=== PATIENT | female | born 1970 | race Caucasian/White ===

== ENCOUNTER 2016-10-01 09:52 | Outpatient (CLI) | payer BC ==
[~2016-10-01 09:52] MED LIST: ACETAMINOPHEN120 MG PO; ACIDOPHILUS PO; BEYAZ PO; LEVOTHYROXINE25 MCG PO; NORCO1 TA1 PO; TRAZODONE HCL50 MG PO
--- NOTE | 2016-10-01 12:26 | DIAGNOSTIC IMAGING REPORT ---
PROCEDURE: US COMPLETE PELVIC W/TRANSVAG INDICATION: PELVIC PAIN TECHNIQUE: Transabdominal and endovaginal valentin scale and color Doppler sonographic images of the female pelvis were obtained. COMPARISON: Pelvic ultrasound dated 09/24/2015 FINDINGS: TRANSABDOMINAL SCANS: The uterus is of normal size 8.4 x 3.1 x 4.8 cm Kidneys are normal. TRANSVAGINAL SCANS: The uterus is anteverted. Myometrium is normal. The endometrium measures 2 mm. Ovaries were not visualized. There is a trace of free fluid in the lower uterine segment and cervix IMPRESSION: 1. Normal uterus and kidneys.
--- NOTE | 2016-10-01 12:37 | DIAGNOSTIC IMAGING REPORT ---
PROCEDURE: US ABDOMEN ULTRASOUND-COMPLETE INDICATION: ABD PAIN TECHNIQUE: Che scale and color Doppler sonographic images of the abdomen were obtained. COMPARISON: CT abdomen/pelvis 09/22/2015 FINDINGS: Liver measures 17.2 cm with a 2.6 cm right hepatic and 1.4 cm left hepatic lobe echogenic lesions consistent with hemangiomas. Normal gallbladder and CBD (2.5 mm). Normal spleen and pancreas. Aorta and IVC are patent. Normal hepatopetal flow. Right clemens measures 11.7 cm with a 1.8 cm heterogeneous tear/lobulation in the upper pole, without corresponding abnormality on prior CT scan. Normal left kidney measures 10.8 cm. IMPRESSION: 1. Two hepatic hemangiomas 2. 1.8 cm right renal upper pole heterogeneous area/lobulation.. Recommend renal CT scan.
== END 2016-10-01 23:00 ==
LOC: US SRH 09:52
DX: R10.9 Unspecified abdominal pain (principal); R10.30 Lower abdominal pain, unspecified; D47.3 Essential (hemorrhagic) thrombocythemia; R93.5 Abnormal findings on diagnostic imaging of other abdominal regions, including retroperitoneum
CPT/HCPCS: 90074; 95059; 95130

== ENCOUNTER 2016-10-05 13:50 | Outpatient (CLI) | payer BC ==
--- NOTE | 2016-10-05 15:04 | DIAGNOSTIC IMAGING REPORT ---
PROCEDURE: CT ABD/PELVIS W/WO CONTRAST CLINICAL INDICATION: LOWER ABD PAIN TECHNIQUE: Noncontrast axial images were obtained through the entire abdomen and pelvis with sagittal and coronal reformations. Following 125 mL of Isovue 300 injected intravenously, axial images were obtained of the entire abdomen and pelvis with sagittal and coronal reformations. COMPARISON: Abdominal ultrasound 10/01/[address] abdomen/pelvis 09/18/2015. FINDINGS: ABDOMEN: Normal right kidney without evidence of a mass. Both kidneys demonstrate normal enhancement and excretion. No calculi or hydronephrosis. Normal ureters. Minor right basilar atelectasis. Normal heart size. 5 mm hypoenhancing lesion in the right hepatic lobe posteriorly, unchanged, likely corresponds to one of the hemangiomas seen on recent ultrasound. Gallbladder, pancreas, spleen and right adrenal gland are normal. 1.7 cm left adrenal nodule measures -21 Hounsfield units on the noncontrast images, consistent with an adenoma. Normal abdominal aorta. Nonspecific bowel gas pattern. PELVIS: The uterus, adnexa and bladder are normal. Small amount of free fluid in the cul-de-sac. No suspicious osseous lesions. IMPRESSION: 1. No evidence of a right renal mass 2. Left adrenal adenoma All CT scans at this facility use dose modulation, iterative reconstruction, and/or weight-based dosing when appropriate to reduce radiation dose to as low as reasonably achievable.
== END 2016-10-05 23:00 ==
LOC: CT SRH 13:50
DX: R10.30 Lower abdominal pain, unspecified (principal); D35.02 Benign neoplasm of left adrenal gland